=== PATIENT | male | born 1960 | race Asian ===

== ENCOUNTER 2021-07-19 11:15 | Inpatient (IN) | payer BC, SELFPAY ==
[~2021-07-19] VITALS: Ht 170.2 cm; Wt 70.3 kg
[2021-07-19 11:16] VITALS: BP 141/76
--- NOTE | 2021-07-19 11:17 | NUR ---
61yo m referred by [employer] for hemodialysis. pt was seen by this am, lab results showed hgb 6.1, crea 16.39, protein/crea ratio 2764, phos 8.5. pt reports weakness x 1 week and vomiting 2 days ago. Pt denies any pain, chest pain, SOB, and n/v at this time. Minor edema noted in bilateral LE at this time. Breath sounds clear and pt stated he is still able to produce urine. Pt is slightly pale at this time. pmh: ESRD, htn, hld meds: amlodipine, lorazepam, sodium bicarb, vit d3, bisoprolol fumarate, simvastatin, iron allergies: Penicillin, Sulfa
[2021-07-19] MEDS ORDERED: FERR-252 PO (11:38)
[2021-07-19] MEDS ORDERED: AMLO2.5T PO (11:38)
[2021-07-19] MEDS ORDERED: [UNRECOGNIZED DRUG - CODE] PO (11:38)
[2021-07-19] MEDS ORDERED: BISO10TA16 PO (11:38)
[2021-07-19] MEDS ORDERED: SIMV10TA1 PO (11:38)
[2021-07-19] MEDS ORDERED: SODI650T2 PO (11:38)
[2021-07-19] MEDS ORDERED: IMO2 PO (11:38)
--- NOTE | 2021-07-19 11:38 | NUR ---
MED REC COMPLETED FOR PATIENT
--- NOTE | 2021-07-19 11:53 | NUR ---
20 G IV ESTABLISHED IN R FOREARM. BLOOD WORK COLLECTED AND HANDED TO FREIGHT SEPARATOR JANUARY
--- NOTE | 2021-07-19 11:53 | NUR ---
MADDIE HANSA SWAB COLLECTED AND HANDED TO BUS GIRL JANUARY KELLY
--- NOTE | 2021-07-19 11:56 | NUR ---
PT PROVIDED WITH URINAL TO OBTAIN URINE SAMPLE
[2021-07-19 12:00] LABS: BASOPHILS % (AUTO) 0.7 % (0.0-2.0); EOSINOPHILS # (AUTO) 0.1 K/uL (0-0.4); EOSINOPHILS % (AUTO) 2.5 % (0.0-4.0); LYMPHOCYTES % (AUTO) 18.8 % (20.5-51.1); MEAN CORPUSCULAR HEMOGLOBIN 33 pg (27-31); MEAN CORPUSCULAR HGB CONC 36 g/dL (33-37); MEAN CORPUSCULAR VOLUME 92.3 fL (80-94); MONOCYTES # (AUTO) 0.4 K/uL (0.8-1.0); MONOCYTES % (AUTO) 6.7 % (1.7-9.3); NEUTROPHILS # (AUTO) 3.9 K/uL (1.8-7.7); NEUTROPHILS % (AUTO) 71.3 % (42.2-75.2); PLATELET COUNT (AUTO) 129 K/uL (140-450); RED CELL DISTRIBUTION WIDTH 12.4 % (11.6-13.7); WHITE BLOOD COUNT (AUTO) 5.5 K/uL (4.8-10.8)
--- NOTE | 2021-07-19 12:00 | NUR ---
XRAY BEDSIDE WITH PATIENT
--- NOTE | 2021-07-19 12:09 | NUR ---
DR. BAY BEDSIDE SPEAKING WITH PATIENT Addendum: 07/19/21 at [address] RAPP BEDSIDE SPEAKING WITH PATIENT
[2021-07-19 12:13] LABS: HEMATOCRIT 17.6 % (36-52); HEMOGLOBIN 6.3 g/dL (12.0-18.0)
[2021-07-19 12:15] LABS: ANION GAP 26.5 (8-16); MAGNESIUM 1.9 mg/dL (1.8-2.4); PHOSPHORUS 7.8 mg/dL (2.5-4.9); POTASSIUM 4.5 mmol/L (3.5-5.1); TOTAL BILIRUBIN 0.4 mg/dL (0.0-1.0)
[2021-07-19] MEDS ORDERED: POTASSIUM CHLORIDE 10 MEQ TABER PO PRN (12:20)
[2021-07-19] MEDS ORDERED: HYDROcodone/APAP 5/325 MG 1 TAB TAB PO PRN (12:20)
[2021-07-19] MEDS ORDERED: MORPHINE SULFATE 2 MG/ML SYR IVP PRN (12:20)
[2021-07-19] MEDS ORDERED: ACETAMINOPHEN 325 MG TAB PO PRN (12:20)
[2021-07-19] MEDS ORDERED: MAGNESIUM OXIDE 400 MG TAB PO PRN (12:20)
[2021-07-19] MEDS ORDERED: DOCUSATE SODIUM 100 MG GELCAP PO PRN (12:20)
[2021-07-19] MEDS ORDERED: ONDANSETRON 4 MG/2 ML VIAL IM/IVP PRN (12:20)
[2021-07-19] MEDS ORDERED: SODIUM PHOS / POTASSIUM PHOS 1 PKT PDR PO PRN (12:20)
[2021-07-19 12:21] LABS: CREATININE 17.6 mg/dL (0.6-1.3)
[2021-07-19 12:27] LABS: PROTHROMBIN TIME 10.2 secs (10.8-13.4)
--- NOTE | 2021-07-19 12:42 | NUR ---
CONSENT FORM SIGNED FOR BLOOD TRANFUSION AND HEMODIALYSIS.
--- NOTE | 2021-07-19 13:33 | NUR ---
URINE COLLECTED AND HANDED TO CONFIGURATION MANAGEMENT SPECIALIST JANUARY ROBIN
--- NOTE | 2021-07-19 13:33 | NUR ---
Patient appears to be resting comfortably in bed. Vital Signs within normal limits. Respirations even and unlabored.
[2021-07-19] MEDS ORDERED: HYDROmorphone 1 MG/ML AMP IVP PRN (13:50)
[2021-07-19 13:57] LABS: APPEARANCE,URINE CLEAR (CLEAR); BILIRUBIN,URINE NEGATIVE (NEGATIVE); COLOR,URINE YELLOW (YELLOW); LEUKOCYTE ESTERASE ,URINE NEGATIVE (NEGATIVE); NITRITE, URINE NEGATIVE (NEGATIVE); UGLUCOSE 1+ (NEGATIVE)
[2021-07-19 14:03] LABS: RBC,URINE 0-5 /HPF (0-5)
[2021-07-19 14:04] LABS: BLOOD, URINE TRACE (NEGATIVE); WBC,URINE 0-5 /HPF (0-5)
--- NOTE | 2021-07-19 14:06 | NUR ---
Patient will be admitted to care of DR. WARD. Admited to TELE. Will go to room 114. Belongings list completed. Report to JOHN MORILLO.
[2021-07-19 14:18] VITALS: BP 146/83
--- NOTE | 2021-07-19 14:18 | NUR ---
PT WAS BROUGHT IN BY BENJI FROM THE ED IN STABLE CONDITION. PT AMBUL[facility] FROM [facility] TO HOSPITAL BED WITH A STEADY GAIT. TELE MONITOR PLACED ON PT AND EDUCATION PROVIDED. VITAL SIGNS TAKEN: 1146/83, 94 HR, 97%, 22 RR, 98.1, AND DENIES PAIN AT THIS TIME. PT LUNG SOUNDS ARE CLEAR, S1&S2 HEARD, NO ABDOMINAL PAIN NOTED, BOWEL SOUNDS HEARD, EDEMA NOTED IN LOWER EXTREMITIES NONPITTING, PALE COOL SKIN NOTED, SKIN INTACT. PT HAS A RIGHT WRIST 20G THAT IS PATENT AND INTACT. PT EDUCATION PROVIDED REGARD HOSPITAL SETTING, PLAN OF CARE, CALL LIGHT AND ALL SUPPLIES PROVIDED. ALL SAFETY MEASURES IN PLACE, CALL LIGHT WITHIN REACH. WILL CONTINUE TO MONITOR.
--- NOTE | 2021-07-19 14:30 | NUR ---
MRSA AND PCR OBTAINED AND LABELED.
--- NOTE | 2021-07-19 14:45 | NUR ---
PRE BLOOD TRANSFUSION VITAL SIGNS TAKEN; 146/83, 0/10 PAIN, 22RR, 94 HR, 98.1. PT STABLE
--- NOTE | 2021-07-19 15:00 | NUR ---
PT BLOOD HAS BEEN PICKED UP FROM LAB, SECOND YARD SWITCHER COMPLETED. IV TUBING PRIMED AND CONNECTED TO PT. PT IS STABLE. WILL CONTINUE TO MONITOR AND FOLLOW HOSPITAL PROTOCOL.
--- NOTE | 2021-07-19 15:15 | NUR ---
PT VITAL SIGNS OBTAINED, 98.1, 84, 20, 157/73, 0/10. PT DENIES ANY PAIN OR NOT FEELING WELL. ALL SAFETY MEASURES IN PLACE, CALL LIGHT WITHIN REACH. WILL CONTINUE TO MONITOR.
[2021-07-19 16:00] VITALS: BP 127/81
--- NOTE | 2021-07-19 16:17 | NUR ---
PT IS STABLE, ALL BLOOD TRANSFUSION VITAL SIGNS ARE BEING TAKEN AND STABLE. ALL NEEDS ARE MET AT THIS TIME. ALL SAFETY MEASURES IN PLACE, CALL LIGHT WITHIN REACH WILL CONTINUE TO MONITOR.
--- NOTE | 2021-07-19 17:14 | NUR ---
PT IS RESTING IN BED AND REPORTS ALL NEEDS ARE MET AND DOES NOT NEED ANYTHING AT THIS TIME. VITAL SIGNS HAVE REMAINED STABLE WITH NO ISSUES. ALL SAFETY MEASURES IN PLACE, CALL LIGHT WITHIN REACH. WILL CONTINUE TO MONITOR.
--- NOTE | 2021-07-19 17:23 | NUR ---
PAGED DR RINALDI REGARDING PTS HD PLACEMENT, REGARDING TIME OF PROCEDURE, AND IF THE PT IS ALLOWED TO EAT OR NOT. AWAITING RESPONSE. WILL CONTINUE TO MONITOR.
--- NOTE | 2021-07-19 18:19 | NUR ---
PT BLOOD TRANSFUSION IS COMPLETE AND PT REMAINED STABLE THROUGH OUT. PT REPORTS ALL NEEDS ARE MET. PT IS SCHEDULED FOR A BEDSIDE PROCEDURE WITH DR FRECNH, WILL START BLOOD TRANSFUSION WHEN COMPLETED OR ENDORSE TO NETWORK MANAGER NURSE DEPENDING ON COMPLETION OF PROCEDURE/
--- NOTE | 2021-07-19 19:05 | NUR ---
BEDSIDE PROCEDURE COMPLETED WITH DR FRENCH FOR DIALYSIS CATH PLACEMENT. PT TOLERATED INSERTION. STAT CHEST XRAY ORDER FOR PLACEMENT CONFIRMATION. PT IS STABLE AND WILL BE ENDORSED TO PIE BAKERY LABORER NURSE
--- NOTE | 2021-07-19 19:30 | NUR ---
RECEIVED REPORT FROM AM NURSE. PATIENT IS RESTING COMFORTABLY IN BED. NO S/S PF RESPIRATORY DISTRESS. RESPIRATION EVEN UNLABORED. SKIN WARM AND DRY TO THE TOUCH. ALL SAFETY PRECAUTIONS ARE IN PLACE. CALL LIGHT WITHIN REACH. WILL CONTINUE TO MONITOR.
--- NOTE | 2021-07-19 19:35 | NUR ---
STARTED INFUSING PRBC. V/S MONITORED AND RECORDED. NEEDS ATTENDED TO. AFEBRILE. CALL LIGHT WITHIN REACH.
[2021-07-19 20:00] VITALS: BP 168/82
[2021-07-19] MEDS ORDERED: SIMVASTATIN 10 MG TAB PO SCH (21:00)
--- NOTE | 2021-07-19 21:04 | NUR ---
ADMINISTERED SCHEDULED MEDS PER MD ORDERED.
--- NOTE | 2021-07-19 21:19 | NUR ---
DR RAPP MADE AWARE THAT PT HAD RT ALVA HD CATH PLACED BY DR FRENCH, ORDERED HEMODIALYSIS FOR TOMORROW, HD NURSE DOMI MADE AWARE, RN MARIAM AWARE.
--- NOTE | 2021-07-19 23:50 | NUR ---
1 UNIT PRBC COMPLETED. NO ADVERSE REACTION NOTED AT THIS TIME. NO S/S OF DISTRESS. NO COMPLAINTS OF PAIN. ALL SAFETY MEASURES IN PLACE. CALL LIGHT WITHIN REACH. WILL CONTINUE TO MONITOR.
[2021-07-20] VITALS: BP 156/81
[2021-07-20 04:00] VITALS: BP 147/75
--- NOTE | 2021-07-20 04:54 | NUR ---
ROUNDED PATIENT, PT IS AWAKE. NO DISTRESS NOTED. NO COMPLAINTS OF PAIN AT THIS TIME. CALL LIGHT WITHIN REACH.
[2021-07-20 06:53] LABS: ANION GAP 21.8 (8-16); CARBON DIOXIDE 20.7 mmol/L (21-32); POTASSIUM 4.5 mmol/L (3.5-5.1)
[2021-07-20 07:02] LABS: CREATININE 17.3 mg/dL (0.6-1.3)
--- NOTE | 2021-07-20 07:02 | NUR ---
SARA FROM LAB CALLED FOR CRITICAL LAB RESULTS CREA-17.3 [id number]. NOT REPORTED TO MD D/T PATIENT WILL HAVE DIALYSIS TODAY AT 0900.
[2021-07-20 07:03] LABS: BASOPHILS % (AUTO) 0.2 % (0.0-2.0); EOSINOPHILS # (AUTO) 0.1 K/uL (0-0.4); EOSINOPHILS % (AUTO) 1.8 % (0.0-4.0); HEMATOCRIT 21.3 % (36-52); HEMOGLOBIN 7.6 g/dL (12.0-18.0); LYMPHOCYTES # (AUTO) 0.4 K/uL (2.0-11.5); LYMPHOCYTES % (AUTO) 8.6 % (20.5-51.1); MEAN CORPUSCULAR HEMOGLOBIN 32 pg (27-31); MEAN CORPUSCULAR HGB CONC 36 g/dL (33-37); MEAN CORPUSCULAR VOLUME 90.7 fL (80-94); MONOCYTES # (AUTO) 0.3 K/uL (0.8-1.0); MONOCYTES % (AUTO) 6.3 % (1.7-9.3); NEUTROPHILS % (AUTO) 83.1 % (42.2-75.2); PLATELET COUNT (AUTO) 78 K/uL (140-450); RED BLOOD CELL COUNT(AUTO) 2.35 MIL/uL (4.20-6.10); RED CELL DISTRIBUTION WIDTH 12.6 % (11.6-13.7); WHITE BLOOD COUNT (AUTO) 4.8 K/uL (4.8-10.8)
[2021-07-20 07:08] LABS: HEPATITIS A ANTIBODY IGM Negative (Negative); HEPATITIS B CORE AB TOTAL Negative (Negative); HEPATITIS B SURFACE ANTIBODY Non Reactive (.); HEPATITIS B SURFACE ANTIGEN Negative (Negative)
--- NOTE | 2021-07-20 07:33 | NUR ---
ENDORSED PATIENT TO AM NURSE FOR CONTINUITY OF CARE. PATIENT IS IN STABLE CONDITION.
--- NOTE | 2021-07-20 07:35 | NUR ---
RECEIVED REPORT FROM PREPARER NURSE FOR CONTINUITY OF CARE. PATIENT IS RESTING COMFORTABLY IN BED. NO S/S OF RESPIRATORY DISTRESS NOTED. RESPIRATION EVEN UNLABORED. SKIN WARM AND DRY TO THE TOUCH W/ BLE NON PITTING EDEMA. IV SITE ON RIGHT WRIST 22 G. SALINE LOCKED. HAS RIJ ALVA CATH FOR DIALYSIS. PLACED ON 07/19. PLAN OF CARE DISCUSSED. ALL SAFETY PRECAUTIONS ARE IN PLACE. CALL LIGHT WITHIN REACH. WILL CONTINUE TO MONITOR.
[2021-07-20 08:00] VITALS: BP 115/82
--- NOTE | 2021-07-20 08:25 | NUR ---
PATIENT HAS BEEN SCREENED AND CATEGORIZED HIGH NUTRITION RISK. PATIENT WILL BE SEEN WITHIN 1-2 DAYS OF ADMISSION. 07/20/21-07/21/21 REFERRAL RECEIVED FOR VOMITING/DIARRHEA OVER [address]
[2021-07-20] MEDS ORDERED: BISOPROLOL FUMARATE 10 MG PO SCH (09:00)
[2021-07-20] MEDS ORDERED: VIT-B COMP/VIT-C/FOLIC ACID 1 TAB PO SCH (09:00)
[2021-07-20] MEDS ORDERED: atenoloL 50 MG TAB PO SCH (09:00)
[2021-07-20] MEDS ORDERED: amLODIPine 5 MG TAB PO SCH (09:00)
[2021-07-20] MEDS ORDERED: PANTOPRAZOLE 40 MG TABEC PO SCH (09:00)
[2021-07-20] MEDS ORDERED: SODIUM BICARBONATE 650 MG TAB PO SCH (09:00)
[2021-07-20] MEDS ORDERED: FERROUS SULFATE 325 MG TABEC PO SCH (09:00)
--- NOTE | 2021-07-20 09:45 | NUR ---
DIALYSIS NURSE AT BEDSIDE PREPARING PATIENT FOR HD TREATMENT.
--- NOTE | 2021-07-20 11:30 | NUR ---
07/20/21 RD INITIAL ASSESSMENT COMPLETED PLEASE REFER TO NUTRITION ASSESSMENT UNDER CARE ACTIVITY FOR ESTIMATED NUTRITIONAL NEEDS. 1. CONTINUE RENAL DIET TOLERATED 2. RD TO FOLLOW-UP 2-3 DAYS, HIGH RISK REVIEWED BY MELINA RUBALCAVA RD
--- NOTE | 2021-07-20 11:34 | NUR ---
DC PLANNING: THE PATIENT ADMITTED THROUGH THE ED FROM HOME BECAUSE HE WAS SENT BY HIS STORAGE RECEIPT POSTER FOR WORSENING RENAL FUNCTIONS. THE PATIENT HAD A RIGHT IJ PLACED BY DR FRENCH, INITIAL HD IN PROCESS. KALLIE SPOKE WITH DR RAPP TO DISCUSS THE DIALYSIS CENTER TO REFER THE PATIENT TO, REFERRAL WILL BE SENT TO [facility]. DR RAPP ALSO STATES THAT THE PATIENT WILL NEED A TUNNEL CATHETER PLACED PRIOR TO DISCHARGE. KALLIE SPOKE WITH THE PATIENT AT BEDSIDE AND CONFIRMED HIS ADDRESS AND PHONE NUMBER PER HIS FACE SHEET. HE LIVES IN A [facility] BY HIMSELF AND WORKS REMOTELY A [employer]. HE DOES NOT HAVE FAMILY IN [place] AND STATES THAT HE WILL DRIVE HIMSELF TO DIALYSIS. THE PATIENT IS INDEPENDENT IN ALL ACTIVITIES AND NO H/O DME OR HOME HEALTH. CM ENDORSED THAT DIALYSIS WILL BE SET UP AND THAT HE WILL BE GIVEN THE FINAL INFORMATION ON DIALYSIS CENTER, DAYS AND CHAIR TIMES. THE CM AND DIALYSIS NURSE ANSWERED HIS QUESTIONS ABOUT TUNNEL CATH PLACEMENT AND TRANSITIONING FROM HD TO PD IN THE FUTURE. KALLIE ALSO SPOKE TO HANSA AT ([phone]) THE PATIENT IS OUT OF NETWORK. HANSA IS THE [employer] BOX TENDER, NUMBER FOR THE DC OFFICE COORDINATOR SRIRAM ([phone]) GIVEN SHE NEEDS TO BE INVOLVED IN ANY IN NETWORK TRANSFER. KALLIE SPOKE WITH THE ATTENDING MD DR WARD, HE STATES THE PATIENT IS STABLE FOR TRANSFER AFTER HD. KALLIE WILL SPEAK WITH THE PATIENT WELL AND WILL FOLLOW UP WITH . Addendum: 07/20/21 at 1158 by Carole Samaniego CM DC PLANNING: KALLIE SPOKE WITH THE PATIENT WHO STATES THAT HE WANTS TO TRANSFER IN NETWORK TO A CONTACTED FACILITY. ORDER TO TRANSFER BY THE ATTENDING MD RECEIVED. KALLIE SPOKE WITH SRIRAM AT ([phone]), SHE WILL START WORKING ON AN ACCEPTING FACILITY, KALLIE WILL NEED TO FAX CLINICAL PACKET TO THEM, SRIRAM STATES THAT SHE WILL HAVE US ARRANGE HIS TRANSPORT TIME. KALLIE WILL FOLLOW FOR NEEDS. Addendum: 07/20/21 at 1218 by Carole Samaniego CM DC PLANNING: REFERRAL SENT TO [facility] PER DIRECTION, SRIRAM AT WILL WORK ON FINDING OTHER FACILITIES TO REFER THE PATIENT TO. KALLIE WILL FOLLOW FOR NEEDS. Addendum: 07/20/21 at 1433 by Ary Fox RN DC PLANNING: CALLED [facility] SPOKE WITH [facility] STILL REVIEWING AND WILL CALL BACK, PER SRIRAM ARREGUIN AT [facility] STATED OUR DR TO CALL TO DR MATUTE AT [facility]. DR CRAIG CALLED FOR [facility] AND DR MATUTE ACCEPTED PATIENT. PER SRIRAM TO CHECK FIRST WITH [facility]. AWAITING FOR [facility]. CM TO FOLLOW Addendum: 07/20/21 at 1657 by Ary Fox RN DC PLANNING: [facility] SPOKE WITH [facility] BED AVAILABLE AT THIS TIME STILL WORKING ON IT. SPOKE WITH THE PATIENT THAT FOR INSURANCE PURPOSE WE TRANSFER HIM TO THE ACCEPTED CONTRACTED FACILITY, PATIENT AGREED AND WILLING TO GO TO [facility], PATIENT IS ACCEPTED AT [facility] SPOKE WITH [facility] STATED PATIENT CAN GO TO ROOM [address] BE DR ANGELLA FOX # TO GIVE REPORT [phone] [place] [address] ARRANGED TRANSPORT WITH [facility] RESEARCH PROGRAM COORDINATOR TIME WITH IN 2 HRS NOTIFIED SARA LOPEZ .
[2021-07-20 12:00] VITALS: BP 147/75
--- NOTE | 2021-07-20 12:45 | NUR ---
DIALYSIS TREATMENT COMPLETED. 1 L OF FLUIDS WERE REMOVED. PT IS STABLE. NO DISTRESS NOTED. WILL CONTINUE TO MONITOR.
--- NOTE | 2021-07-20 14:55 | NUR ---
CHECKED ON PATIENT. PATIENT IS STABLE. DENIES PAIN. WILL CONTINUE TO MONITOR.
[2021-07-20 16:00] VITALS: BP 156/83
--- NOTE | 2021-07-20 17:55 | NUR ---
[facility]SPORT[facility] IS AT PATIENTS BEDSIDE.
--- NOTE | 2021-07-20 18:15 | NUR ---
CONTACTED [facility] AND ENDORSED PATIENT REPORT TO JOHN ABDALLA. PATIENT WILL BE TRANSPORTED WITH [facility].
[2021-07-20 18:28] VITALS: BP 157/86
--- NOTE | 2021-07-20 18:45 | NUR ---
ENDORSED DISCHARGE INSTRUCTIONS TO PATIENT. PATIENT VERBALIZED UNDERSTANDING AND SIGNED DISCHARGE FORMS.
--- NOTE | 2021-07-20 18:55 | NUR ---
PATIENT DISCHARGED OFF THE UNIT. TRANSPORTED TO [facility] BY [facility]. PATIENT LEFT WITH RIGHT WIRST IV 22G AND [facility] ALVA CATH FOR HD. PT WAS STABLE PRIOR TO DISCHARGE
== END 2021-07-20 18:50 | disposition short-term general hospital (02) | DRG 683 ==
LOC: MED 11:15 → MTU 12:23
PROVIDERS: ADMIT Hospitalist; ATTEND Hospitalist
PROC: 02HV33Z Insertion of Infusion Device into Superior Vena Cava, Percutaneous Approach (ICD-10-PCS; principal; 2021-07-19)
PROC: B548ZZA Ultrasonography of Superior Vena Cava, Guidance (ICD-10-PCS; 2021-07-19)
PROC: 30233N1 Transfusion of Nonautologous Red Blood Cells into Peripheral Vein, Percutaneous Approach (ICD-10-PCS; 2021-07-19)
PROC: 5A1D70Z Performance of Urinary Filtration, Intermittent, Less than 6 Hours Per Day (ICD-10-PCS; 2021-07-19)
DX: N17.0 Acute kidney failure with tubular necrosis (principal); I12.0 Hypertensive chronic kidney disease with stage 5 chronic kidney disease or end stage renal disease; N18.6 End stage renal disease; R73.9 Hyperglycemia, unspecified; D69.6 Thrombocytopenia, unspecified; E83.39 Other disorders of phosphorus metabolism; D63.1 Anemia in chronic kidney disease; Z20.822 Contact with and (suspected) exposure to COVID-19; E83.51 Hypocalcemia; Z88.0 Allergy status to penicillin; Z88.2 Allergy status to sulfonamides; Z79.899 Other long term (current) drug therapy; Z90.49 Acquired absence of other specified parts of digestive tract
CPT/HCPCS: 36415; 36430; 71045; 80048; 80053; 81001; 83036; 83735; 84100; 84484; 85025; 85610; 85730; 86704; 86706; 86708; 86709; 86803; 86886; 86900; 86901; 86920; 87081; 87340; 93005; 99291; J1644; P9016; Q0092; U0003